=== PATIENT | male | born 1940 | race Caucasian/White ===

== ENCOUNTER 2022-03-23 10:03 | Inpatient (IN) ==
[2022-03-23 10:51] LABS: Basophils # 0.1 10*3/uL (0.0-0.2); Basophils % 0.7 % (0.0-0.8); Eosinophils # 0.4 10*3/uL (0.0-0.87); Eosinophils % 5.6 % (0.00-10.9); Hemoglobin 13.4 GM/DL (14.0-18.0); Immature Granulocytes % 0.3 %; Immature Granulocytes Absolute 0.02 #; Lymphocytes # 1.8 10*3/uL (1.4-4.0); Lymphocytes % 24.5 % (21.2-54.2); Mean Corpuscular HGB Conc 34.4 GM/DL (32-36); Mean Corpuscular Volume 94.2 FL (87-102); Mean Platelet Volume 10.3 FL (9.6-12.0); Monocytes # 0.7 10*3/uL (0.11-0.8); Monocytes % 9.7 % (1.7-12.7); Neutrophils % 59.2 % (38.7-73.9); Platelet Count 146 T/CUMM (130-400); Red Blood Count 4.14 MC/CUMM (3.8-5.5); Red Cell Distribution Width 13.2 % (9.3-17.3); White Blood Count 7.5 T/CUMM (4-12)
[2022-03-23 11:06] LABS: PT Patient Result 10.6 SECS (10.1-12.1)
[2022-03-23 11:24] LABS: Albumin 3.2 G/DL (3.4-5.0); Bilirubin,Total 0.6 MG/DL (0.20-1.00); Calcium 8.9 MG/DL (8.5-10.1); Potassium 3.9 MMOL/L (3.5-5.1); Thyroid Stimulating Hormone 3.41 uIU/ml (0.358-3.74); Total Protein 7.6 G/DL (6.4-8.2)
[2022-03-23 11:25] LABS: Barbiturates Screen,Urine Negative (Negative); Benzodiazepines Screen,Urine Negative (Negative); Cannabinoid Screen,Urine Negative (Negative); Opiate Screen,Urine Negative (Negative); Phencyclidine Screen,Urine Negative (Negative)
[2022-03-23] MEDS ORDERED: MAGNESIUM SULF RIDER 2 GM/50 ML PREMIX IV PRN (12:10)
[2022-03-23] MEDS ORDERED: MAGNESIUM SULF RIDER 4 GM/100 ML PREMIX IV PRN (12:10)
[2022-03-23] MEDS ORDERED: ONDANSETRON 4 MG/2 ML VIAL IV PRN (12:10)
[2022-03-23] MEDS: SODIUM CHLORIDE 0.45% 1,000 ML IV SCH ×2 (13:03→21:20)
[2022-03-23] MEDS: ENOXAPARIN 40 MG/0.4 ML SYRINGE SUBCUT SCH (21:20)
[2022-03-23] MEDS: IBUPROFEN 400 MG TABLET PO SCH (21:20)
[2022-03-24] MEDS: SODIUM CHLORIDE 0.45% 1,000 ML IV SCH ×3 (04:57→20:46)
[2022-03-24] MEDS ORDERED: PROSTATE SUPPLEMENT PO SCH (09:00)
[2022-03-24] MEDS: TRIAMTERENE/HCTZ 37.5-25 MG TABLET PO SCH (10:05)
[2022-03-24] MEDS: OMEGA 3 ACID ETHYL ESTERS 1 GM CAPSULE PO SCH (10:05)
[2022-03-24] MEDS: ASPIRIN EC 81 MG TABLET PO SCH (10:06)
[2022-03-24] MEDS: LOSARTAN 50 MG TABLET PO SCH (10:06)
[2022-03-24] MEDS: PANTOPRAZOLE 40 MG TABLET PO SCH (10:06)
[2022-03-24] MEDS: CLOPIDOGREL 75 MG TABLET PO SCH (10:08)
[2022-03-24] MEDS: ENOXAPARIN 40 MG/0.4 ML SYRINGE SUBCUT SCH (20:47)
[2022-03-24] MEDS: IBUPROFEN 400 MG TABLET PO SCH (20:47)
[2022-03-25 04:41] LABS: Basophils % 0.4 % (0.0-0.8); Eosinophils # 0.6 10*3/uL (0.0-0.87); Eosinophils % 8.8 % (0.00-10.9); Hematocrit 36.1 VOL% (42.0-52.0); Hemoglobin 12.2 GM/DL (14.0-18.0); Immature Granulocytes % 0.3 %; Immature Granulocytes Absolute 0.02 #; Lymphocytes # 2.1 10*3/uL (1.4-4.0); Lymphocytes % 29.8 % (21.2-54.2); Mean Corpuscular HGB Conc 33.8 GM/DL (32-36); Mean Corpuscular Volume 94.8 FL (87-102); Mean Platelet Volume 10.3 FL (9.6-12.0); Monocytes # 0.6 10*3/uL (0.11-0.8); Monocytes % 8.5 % (1.7-12.7); Neutrophils % 52.2 % (38.7-73.9); Red Blood Count 3.81 MC/CUMM (3.8-5.5); Red Cell Distribution Width 13.1 % (9.3-17.3); White Blood Count 6.9 T/CUMM (4-12)
[2022-03-25 04:42] LABS: Platelet Count 144 T/CUMM (130-400)
[2022-03-25] MEDS: SODIUM CHLORIDE 0.45% 1,000 ML IV SCH (04:45)
[2022-03-25 04:55] LABS: Calcium 8.4 MG/DL (8.5-10.1); Osmolality,Calculated 260.8 MOS/KG (273-304); Potassium 3.8 MMOL/L (3.5-5.1)
[2022-03-25] MEDS ORDERED: diphenhydrAMINE CAP 25 MG CAPSULE PO ONE (07:00)
[2022-03-25] MEDS ORDERED: DIAZEPAM 5 MG TABLET PO ONE (07:00)
[2022-03-25] MEDS ORDERED: VANCOMYCIN INJ 500 MG in SODIUM CHLORIDE 0.9% 100 ML IV ONE (07:00)
[2022-03-25] MEDS ORDERED: VANCOMYCIN 500 MG VIAL IRRIG ONE (07:00)
[2022-03-25] MEDS ORDERED: DEXTROSE 5% NACL 0.45% 1,000 ML IV SCH (07:00)
[2022-03-25] MEDS ORDERED: HEPARIN/NACL 0.9% 2 UNITS/ML 1,000 UNIT/500 ML BAG IV ONE (08:24)
[2022-03-25] MEDS ORDERED: LIDOCAINE 1%/EPI INJ 20 ML VIAL ONE (08:24)
[2022-03-25] MEDS ORDERED: VANCOMYCIN 500 MG VIAL ONE (08:28)
[2022-03-25] MEDS ORDERED: fentaNYL 100 MCG/2 ML VIAL ONE (08:44)
[2022-03-25] MEDS ORDERED: MIDAZOLAM 2 MG/2 ML VIAL ONE (08:44)
[2022-03-25] MEDS: PANTOPRAZOLE 40 MG TABLET PO SCH (11:33)
[2022-03-25] MEDS: ASPIRIN EC 81 MG TABLET PO SCH (11:33)
[2022-03-25] MEDS: TRIAMTERENE/HCTZ 37.5-25 MG TABLET PO SCH (11:33)
[2022-03-25] MEDS: LOSARTAN 50 MG TABLET PO SCH (11:33)
[2022-03-25] MEDS: OMEGA 3 ACID ETHYL ESTERS 1 GM CAPSULE PO SCH (11:33)
[2022-03-25] MEDS: CLOPIDOGREL 75 MG TABLET PO SCH (11:33)
[2022-03-25] MEDS: IBUPROFEN 400 MG TABLET PO SCH (21:32)
[2022-03-25] MEDS: ENOXAPARIN 40 MG/0.4 ML SYRINGE SUBCUT SCH (21:33)
[2022-03-26 05:36] LABS: Basophils % 0.6 % (0.0-0.8); Eosinophils # 0.5 10*3/uL (0.0-0.87); Eosinophils % 6.3 % (0.00-10.9); Hematocrit 40.9 VOL% (42.0-52.0); Hemoglobin 13.6 GM/DL (14.0-18.0); Immature Granulocytes % 0.3 %; Immature Granulocytes Absolute 0.02 #; Lymphocytes # 1.4 10*3/uL (1.4-4.0); Lymphocytes % 19.9 % (21.2-54.2); Mean Corpuscular HGB Conc 33.3 GM/DL (32-36); Mean Corpuscular Volume 94.7 FL (87-102); Mean Platelet Volume 10.2 FL (9.6-12.0); Monocytes # 0.6 10*3/uL (0.11-0.8); Monocytes % 8.7 % (1.7-12.7); Neutrophils % 64.2 % (38.7-73.9); Platelet Count 156 T/CUMM (130-400); Red Blood Count 4.32 MC/CUMM (3.8-5.5); Red Cell Distribution Width 13.2 % (9.3-17.3); White Blood Count 7.1 T/CUMM (4-12)
[2022-03-26 06:04] LABS: Calcium 8.9 MG/DL (8.5-10.1); Osmolality,Calculated 274.7 MOS/KG (273-304); Potassium 3.9 MMOL/L (3.5-5.1)
[2022-03-26] MEDS ORDERED: diphenhydrAMINE CAP 25 MG CAPSULE PO ONE (07:10)
[2022-03-26] MEDS ORDERED: VANCOMYCIN INJ 500 MG in SODIUM CHLORIDE 0.9% 100 ML IV ONE (07:10)
[2022-03-26] MEDS ORDERED: DIAZEPAM 5 MG TABLET PO ONE (07:10)
[2022-03-26] MEDS ORDERED: VANCOMYCIN 500 MG VIAL IRRIG ONE (07:10)
[2022-03-26] MEDS ORDERED: HEPARIN/NACL 0.9% 2 UNITS/ML 1,000 UNIT/500 ML BAG IV ONE (07:22)
[2022-03-26] MEDS ORDERED: VANCOMYCIN 500 MG VIAL ONE ×2 (07:22)
[2022-03-26] MEDS ORDERED: LIDOCAINE 1%/EPI INJ 20 ML VIAL ONE (07:24)
[2022-03-26] MEDS ORDERED: fentaNYL 100 MCG/2 ML VIAL ONE (07:36)
[2022-03-26] MEDS ORDERED: MIDAZOLAM 2 MG/2 ML VIAL ONE (07:36)
[2022-03-26] MEDS: PANTOPRAZOLE 40 MG TABLET PO SCH (09:22)
[2022-03-26] MEDS: OMEGA 3 ACID ETHYL ESTERS 1 GM CAPSULE PO SCH (09:22)
[2022-03-26] MEDS: CLOPIDOGREL 75 MG TABLET PO SCH (09:22)
[2022-03-26] MEDS: LOSARTAN 50 MG TABLET PO SCH (09:22)
[2022-03-26] MEDS: ASPIRIN EC 81 MG TABLET PO SCH (09:22)
[2022-03-26] MEDS: TRIAMTERENE/HCTZ 37.5-25 MG TABLET PO SCH (09:27)
[2022-03-26] MEDS: IBUPROFEN 400 MG TABLET PO SCH (20:25)
[2022-03-26] MEDS: ENOXAPARIN 40 MG/0.4 ML SYRINGE SUBCUT SCH (20:25)
[2022-03-27 04:56] LABS: Basophils % 0.6 % (0.0-0.8); Eosinophils # 0.6 10*3/uL (0.0-0.87); Eosinophils % 7.9 % (0.00-10.9); Hematocrit 39.7 VOL% (42.0-52.0); Hemoglobin 13.2 GM/DL (14.0-18.0); Immature Granulocytes % 0.3 %; Immature Granulocytes Absolute 0.02 #; Lymphocytes # 1.6 10*3/uL (1.4-4.0); Lymphocytes % 22.2 % (21.2-54.2); Mean Corpuscular HGB Conc 33.2 GM/DL (32-36); Mean Corpuscular Volume 96.4 FL (87-102); Mean Platelet Volume 10.3 FL (9.6-12.0); Monocytes # 0.6 10*3/uL (0.11-0.8); Monocytes % 8.9 % (1.7-12.7); Neutrophils % 60.1 % (38.7-73.9); Platelet Count 152 T/CUMM (130-400); Red Blood Count 4.12 MC/CUMM (3.8-5.5); Red Cell Distribution Width 13.2 % (9.3-17.3); White Blood Count 7.2 T/CUMM (4-12)
[2022-03-27 05:17] LABS: Calcium 8.6 MG/DL (8.5-10.1); Osmolality,Calculated 275.7 MOS/KG (273-304); Potassium 4.2 MMOL/L (3.5-5.1)
[2022-03-27 07:55] VITALS: BP 118/74
[2022-03-27] MEDS: OMEGA 3 ACID ETHYL ESTERS 1 GM CAPSULE PO SCH (08:57)
[2022-03-27] MEDS: CLOPIDOGREL 75 MG TABLET PO SCH (08:57)
[2022-03-27] MEDS: TRIAMTERENE/HCTZ 37.5-25 MG TABLET PO SCH (08:57)
[2022-03-27] MEDS: ASPIRIN EC 81 MG TABLET PO SCH (08:57)
[2022-03-27] MEDS: LOSARTAN 50 MG TABLET PO SCH (08:58)
[2022-03-27] MEDS: PANTOPRAZOLE 40 MG TABLET PO SCH (08:58)
== END 2022-03-27 10:41 | disposition home or self-care (01) | DRG 243 ==
LOC: N.ED 10:03 → N.EDINP 12:10 → N.TELES 18:34
PROVIDERS: ADMIT Internal Medicine Cardiovascular Disease; ATTEND Internal Medicine Cardiovascular Disease